=== PATIENT | male | born 1985 | race Caucasian/White ===

== ENCOUNTER 2016-10-30 11:46 | Emergency (ER) | payer OTHER ==
[~2016-10-30 11:46] MED LIST: CEPH500C PO; LRT5 PO; REVIEWED; TRAM-10 PO
[2016-10-30 11:48] VITALS: TEMP 36.8; Ht 180.3 cm
[2016-10-30] MEDS ORDERED: FEXO1TAB58 PO (12:07)
[2016-10-30] MEDS ORDERED: OXYCODONE/ACETAMINOPHEN 5-325 TAB PO STA (12:07)
[2016-10-30] MEDS ORDERED: ONDANSETRON 4MG OD TAB PO STA (12:07)
[2016-10-30] MEDS ORDERED: DIPHTHERIA/TETANUS/PERTUSSIS 0.5 ML SYR/VIAL IM. ONE (12:15)
--- NOTE | 2016-10-30 13:22 | DIAGNOSTIC IMAGING REPORT ---
CT LUMBAR SPINE WITHOUT CT DOSE: CLINICAL HISTORY: Lumbar spine pain status post trauma. 10 to 12 ft. fall. TECHNIQUE: Helical images were acquired in transverse plane. Reformatted sagittal and coronal images were reviewed. CONTRAST: No contrast was administered COMPARISON STUDY: None. FINDINGS: L1-2 level: There is no evidence of significant disc bulge or focal herniation. There is no evidence of spinal or foraminal stenosis. L2-3 level: There is no evidence of significant disc bulge or focal herniation. There is no evidence of spinal or foraminal stenosis. L3-4 level: There is no evidence of significant disc bulge or focal herniation. There is no evidence of spinal or foraminal stenosis. L4-5 level: There is a mild circumferential disc bulge. There is mild spinal stenosis. There is no significant foraminal narrowing L5-S1 level: There is no evidence of significant disc bulge or focal herniation. There is no evidence of spinal or foraminal stenosis. There are mild acute superior endplate compression deformities at the T12, L1, and L2 levels. IMPRESSION: Mild acute superior endplate compression deformities the T12, L1, and L2 levels. Electronically signed by: Ross Ray M.D. 10/30/2016 1:20 PM Dictated Date/Time: 10/30/2016 1:16 PM
--- NOTE | 2016-10-30 13:23 | DIAGNOSTIC IMAGING REPORT ---
THORACIC SPINE CT CT DOSE: 1179.30 mGy.cm HISTORY: Trauma 10-12 foot fall onto back; thoracic and lumbar back pain TECHNIQUE: Multiaxial CT images of the thoracic spine were performed and reformatted in the sagittal and coronal plane without the use of contrast. COMPARISON: None. FINDINGS: Very slight cortical fracture superior endplate T12. Fractures. Endplate L1 which will be discussed in the patient's CT lumbar spine report. No evidence for additional acute vertebral abnormality of the thoracic region. No compromise of the spinal canal. Posterior elements appear to be intact. IMPRESSION: 1. Very slight cortical fracture superior endplate T12. No loss of vertebral body height 2. No additional acute bony abnormality of the thoracic spine. No compromise of the spinal canal. 3. Mild compression deformity superior endplate L1 as well as L2 which will be discussed with the patient's CT lumbar spine report. Electronically signed by: Tarun Buenrostro M.D. 10/30/2016 1:22 PM Dictated Date/Time: 10/30/2016 1:16 PM
[2016-10-30] MEDS ORDERED: OXYC-57 PO (13:48)
[2016-10-30 14:22] VITALS: BP 117/62; PULSE 82; O2SAT 98
--- NOTE | 2016-10-30 22:00 | EMERGENCY ROOM VISIT NOTE ---
ED Visit Note First contact with patient: 11:54 Chief Complaint: Back pain. History of Present Illness: Mr. Tellez is a 31-year-old white male who ambulates into the ED accompanied by 2 female friends complaining of thoracic and lumbar back pain. Patient reports approximately 2 hours ago he was standing on a ladder approximately 10-12 feet in the air and fell off the ladder and onto grass. He reports the time of the fall he did not strike his head or have a loss of consciousness and since the fall he has had no signs of head injury. He does report immediately after the fall he felt nauseated but that has subsequently resolved. Currently he is complaining of lower thoracic and upper lumbar back pain. He says there is an underlying throbbing sensation that becomes sharp with movement. He rates his discomfort 9/10. The pain is nonradiating. His pain worsens with all movement of the thoracic and lumbar spine, ambulation, and palpation of the bony lower thoracic and upper lumbar spine. He has not identified any alleviating factors related to the pain. He has not had any medications for pain prior to arrival at the hospital. Currently he denies neck pain, coccyx/sacrum pain, chest pain, shortness of breath, abdominal pain, nausea, vomiting, urinary symptoms, hematuria, extremity weakness/numbness/tingling. Additionally he denies any previous significant injuries or surgeries to the thoracic or lumbar spines. Review of Systems: As noted above in history of present illness. All body systems were reviewed and found to be negative as noted above. Past Medical History: Seasonal allergies. Current Medications: Mei-D. Allergies to Medications: Patient denies. Social History: Patient is currently employed; he feels safe in his home environment; patient demise tobacco use. Physical Examination: Vital Signs: Date Time Temp Pulse Resp B/P (MAP) Pulse Ox O2 Delivery O2 Flow Rate FiO2 10/30/16 14:22 82 20 117/62 98 10/30/16 14:16 80 27 10/30/16 13:46 84 17 98 10/30/16 13:31 124/72 10/30/16 12:46 78 26 10/30/16 12:31 132/88 10/30/16 12:16 80 19 99 10/30/16 12:07 85 10/30/16 12:01 135/90 6/15/17 11:48 36.8 75 18 139/90 95 Room Air GENERAL: 31-year-old male in moderate distress due to pain, nontoxic-appearing, afebrile and hemodynamically stable. NEUROLOGICAL: Awake, alert and oriented to person, place and time. Answering questions appropriately and following commands. Normal gait. Good hand eye coordination. No focal motor or sensory deficits. SKIN: Warm, dry and pink. Back: Superficial abrasion starting at the level of the top of the left scapula extending down to the L4-L5 area; no active bleeding. HEENT: Atraumatic and normocephalic. PERRLA. Sclera white and conjunctiva pink. No drainage from naris. Airway patent. Speech normal. Trachea midline. No jugular venous distention. BACK: No tenderness over the bony cervical spine. Bony tenderness over T8-L3 without crepitus, step-offs, swelling or ecchymosis. Decreased range of motion in all movements of the waist. I was not able to perform a straight leg raise test due to pain. There is also mild tenderness throughout the thoracic and lumbar paraspinous musculature primarily on the right in the area of his abrasion. No CVA tenderness. THORAX: Lungs sounds are clear to auscultation and equal bilaterally with symmetrical chest wall. No wheezing, rales or rhonchi. No crepitus, tenderness , subcutaneous air or deformities noted. ABDOMEN: Flat, soft and nontender. Positive bowel sounds in all quadrants. No guarding, rigidity or organomegaly. LOWER EXTREMITIES: No gross bony deformities. No shortening or malrotation. No tenderness throughout the hips, thighs, knees, lower legs, ankle or feet. 2 + to her reflexes intact and equal bilaterally. Able to distinguish light sensations through all dermatomes. 4/5 muscle strength in flexion, extension, abduction and abduction of the hips, flexion and extension of the knees and plantar flexion and dorsiflexion of the ankles. ED Course: Patient is assessed as noted above. The patient's medication list was reviewed. Patient was given 2 5 mg Percocet tablets by mouth for pain. Thoracic Spine CT: Was reviewed by myself and read by the radiologist showing very slight cortical fracture of the superior endplate of T12 with no loss of vertebral height. Lumbar Spine CT: Was reviewed by myself and read by the radiologist showing mild acute superior endplate compression deformities of L1 and L2. Patient was reassessed multiple times during his stay in the emergency department. Patient's case was reviewed with Dr. Choi we agreed on diagnostic approach, treatment, disposition and plan. Patient was educated about today's findings and instructed on history and the plan; he verbalizes understanding and agreement with this plan. Clinical Impression: Endplate fractures of T12, L1 and L2. Back abrasion. Status post fall. Decision-Making: Initially my differential diagnosis I considered compression fracture, vertebral fracture, disc rupture and other causes. Disposition: Patient discharged home in stable condition accompanied by his ; prior to departure he was reassessed and subjectively reported he was feeling better. Plan: Comfort measures, wound care and signs of infection were discussed with the patient; patient was prescribed Percocet for pain and his name was screened on the [place] website no red flags were noted and he was given appropriate narcotic precautions. Patient was educated on proper lifting and moving techniques. Patient was encouraged to follow-up with Dr. Nevarez, orthopedic back specialist. Patient was encouraged return to the ED for uncontrolled pain, rectal/genital paresthesias, bowel and bladder dysfunction, lower extremity weakness/numbness/ tingling or any new/concerning symptoms.
== END 2016-10-30 14:23 | disposition home or self-care (01) ==
LOC: C.EDB 11:47 → C.EDA 14:23
DX: S22.088A Other fracture of T11-T12 vertebra, initial encounter for closed fracture (principal); S32.010A Wedge compression fracture of first lumbar vertebra, initial encounter for closed fracture; S32.020A Wedge compression fracture of second lumbar vertebra, initial encounter for closed fracture; S20.412A Abrasion of left back wall of thorax, initial encounter; W11.XXXA Fall on and from ladder, initial encounter; J30.2 Other seasonal allergic rhinitis; Z23 Encounter for immunization

== ENCOUNTER → 2018-01-11 | Outpatient (CLI) | payer OTHER ==
[~2018-01-11] MED LIST changes: -CEPH500C PO; +FEXO1TAB58 PO; -LRT5 PO; -REVIEWED; -TRAM-10 PO
--- NOTE | 2018-01-11 16:14 | DIAGNOSTIC IMAGING REPORT ---
CERVICAL SPINE 5 VIEWS HISTORY: Neck pain COMPARISON: None. FINDINGS: The cervical spine is visualized from C1 through the superior endplate of T1. There is no fracture. No subluxation. Disc spaces are preserved. Prevertebral soft tissues and the atlantodens interval are intact. Mild facet degenerative changes within the lower cervical spine. The neural foramen appear patent. IMPRESSION: No fracture or subluxation within the cervical spine. Mild facet degenerative changes within the lower lumbar spine. Electronically signed by: Jarad Rodriguez M.D. 01/11/2018 4:12 PM Dictated Date/Time: 01/11/2018 4:11 PM
[2018-01-11 17:47] LABS: BLOOD UREA NITROGEN 17 mg/dl (7-18); CARBON DIOXIDE 28 mmol/L (21-32); CREATININE 1.05 mg/dl (0.60-1.40); GLUCOSE 93 mg/dl (70-99); POTASSIUM 3.5 mmol/L (3.5-5.1); SODIUM 139 mmol/L (136-145)
== END | disposition home or self-care (01) ==
LOC: C.RADPV 15:44
PROVIDERS: ATTEND Nurse Practitioner
DX: M47.816 Spondylosis without myelopathy or radiculopathy, lumbar region (principal); M54.2 Cervicalgia; R51 Headache